=== PATIENT | male | born 1950 | race Caucasian/White ===

== ENCOUNTER 2016-04-27 11:19 | Emergency (ER) | payer OTHER ==
[~2016-04-27] VITALS: Ht 177.8 cm; Wt 72.2 kg
[~2016-04-27 11:19] MED LIST: GLUCOSAMINE &1 EAC1 PO; LEVOFLOXACIN750 MG PO; MOTRIN600 MG PO; TUMS500 MG PO
[2016-04-27 12:22] LABS: HEMATOCRIT 47.5 % (38.0-50.0); MCH 29.2 PG (29.0-34.0); MCHC 33.3 G/DL (30.0-36.0); MCV 87.6 FL (86-99); MEAN PLAT.VOLUME 9.2 uM^3 (9.0-12.4); PLATELET COUNT 267 K/uL (156-360); RBC DIS.WIDTH-CV 12.9 % (11.8-14.6); RBC DIS.WIDTH-SD 41.1 % (39-53); RED BLOOD COUNT 5.42 M/uL (4.00-5.50); WHITE BLOOD COUNT 8.6 K/uL (4.1-10.2)
[2016-04-27 12:30] LABS: PROTHROMBIN TIME 10.5 (9.2-11.2)
[2016-04-27 13:50] VITALS: BP 128/85
== END 2016-04-27 13:51 | disposition home or self-care (01) ==
LOC: EME 11:19
PROVIDERS: Physician Assistant
DX: R04.0 Epistaxis (principal); I10 Essential (primary) hypertension; Z87.891 Personal history of nicotine dependence
CPT/HCPCS: 85027; 85610; 99281; 99283